=== PATIENT | male | born 2000 | race Caucasian/White ===

== ENCOUNTER 2023-03-04 03:18 | Emergency (ER) | payer OTHER, SELFPAY ==
[2023-03-04] VITALS (7 sets, daily range): BP systolic 117–139; BP diastolic 71–91; PULSE 75–94; RESP 13–20; TEMP 36.3–36.4; O2SAT 96–100
--- NOTE | ~2023-03-04 | XR_ITS ---
Portable chest x-ray Comparison: None Clinical History: Palpitations Findings: Lungs are clear, without focal consolidation or pleural effusion. Cardiomediastinal silho uette is unremarkable. Bones and soft tissues are unremarkable. Impression: Normal chest. Reviewed, dictated and finalized at location . Impression: Normal chest.
--- NOTE | 2023-03-04 04:30 | ECG_ITS ---
Measurements Intervals [place] Rate: 78 P: 51 MT: 130 QRS: 60 QRSD: 98 T: 37 QT: 353 QTc: 404 Interpretive Statements SINUS RHYTHM BASELINE ARTIFACT- I, II, AVR, AVL NORMAL ECG NO PREVIOUS ECG AVAILABLE FOR COMPARISON Electronically Signed On 03-04-2023 6:24:52 CDT by Sekou Santiago D.O.
--- NOTE | 2023-03-04 05:04 | ED.GENADULT ---
HPI - General Adult General Chief complaint: Shortness of Breath/Dyspnea Stated complaint: Hard time breathing, heart rate up History of Present Illness HPI narrative: This is a 22-year-old male with a history of anxiety presenting ED after waking up gasping for breath. He woke up he had a pounding heartbeat, feelings of anxiety and tingling in his hands. It resolved on its own by time the patient got to the emergency room. Patient has no history of panic attacks. He has no other complaints at this time. Related Data Home Medications Medication Instructions Recorded Confirmed No Home Medications 10/29/21 10/29/21 Allergies Allergy/AdvReac Type Severity Reaction Status Date / Time cat dander Allergy Unknown Asthma Verified 10/29/21 15:19 house dust mite Allergy Unknown Asthma Verified 10/29/21 15:19 [facility] Past Medical History Medical History Acute anxiety Nocturnal enuresis Family History Family History Father Anxiety and depression Thyroid disorder Mother Hypertension Social History Social History Smoking status: Never smoker (vaping) Tobacco type: e-cigarettes/vaping Alcohol intake: current Drinks per week: 3 Substance use: never Gender identity (if verbalized by the patient): Male Exam Narrative: APPEARANCE: No apparent distress. Head: atraumatic. EYES: EOMI, NOSE: Atraumatic NECK: Trachea midline RESPIRATORY: No increased rate of breathing, clear to auscultation CARDIOVASCULAR: RRR, no peripheral edema ABDOMINAL: Non-distended, soft nontender no guarding rebound MUSCULOSKELETAl: No obvious deformities NEURO: Alert. Moving 4/4 extremities SKIN:: Warm, dry. Normal color PSYCHIATRIC: Normal affect Course Vital Signs Vital signs: Vital Signs Temperature 97.4 F L 03/04/23 03:22 Pulse Rate 78 03/04/23 03:22 Respiratory Rate 20 03/04/23 03:22 Blood Pressure 135/91 H 03/04/23 03:22 Pulse Oximetry 100 03/04/23 03:22 Oxygen Delivery Room Air 03/04/23 03:22 Temperature 97.6 F 03/04/23 03:32 Pulse Rate 94 03/04/23 04:40 Respiratory Rate 16 03/04/23 04:40 Blood Pressure 120/71 03/04/23 04:40 Pulse Oximetry 96 03/04/23 04:40 Oxygen Delivery Room Air 03/04/23 03:30 Medical Decision Making MDM Narrative Medical decision making narrative: -Presentation: 22-year-old male with history of anxiety presenting with an episode of shortness of breath, anxiety and palpitations. -DDX includes but is not limited to: Anxiety, dysrhythmia, panic disorder, substance use -Co-morbidities complicating care: history of anxiety -Social determinants of health: the patient works for [employer] with his mother -External Chart Review: review of previous office notes for for anxiety -Hx from independent Sources: Mom at bedside -Discussion of Management/Consultants: None -Independent interpretation of studies: Chest XR normal Independent EKG interpretation: Rhythm [sinus], Rate [78], [place] -[normal], GA -[normal], QRS [narrow], QTC [normal], T waves -[negative for concerning inversions], ST Segments - [Negative for concerning elevations] Final interpretations: [Normal Sinus Rhythm] Dx tests considered but not ordered: none -Procedures: none -Interventions: none -Shared decision making / Disposition: I discussed the patient's symptoms with him and his mother. I offered to get some screening lab work and they declined. They are more comfortable following up with her primary care physician. They will be discharged with return precautions. -RX Vital Signs Vital Signs: Vital Signs Temperature 97.4 F L 03/04/23 03:22 Pulse Rate 78 03/04/23 03:22 Respiratory Rate 20 03/04/23 03:22 Blood Pressure 135/91 H 03/04/23 03:22 Pulse Oximetry 100 03/04/23 03:22
== END 2023-03-04 05:28 | disposition home or self-care (01) ==
PROVIDERS: Emergency Provider Emergency Medicine; PCP Family Medicine
DX: F41.0 Panic disorder [episodic paroxysmal anxiety] (principal); F17.290 Nicotine dependence, other tobacco product, uncomplicated
CPT/HCPCS: 71045; 93005; 99283

== ENCOUNTER 2023-04-14 08:32 | Outpatient (CLI) | payer OTHER, SELFPAY ==
[2023-04-14 10:05] LABS: Kit Draw Collected
== END 2023-04-14 08:33 | disposition home or self-care (01) ==
LOC: ANHGOSHLAB 08:34
PROVIDERS: PCP Family Medicine; Visit Provider Nurse Practitioner Family
DX: E03.9 Hypothyroidism, unspecified (principal); F41.9 Anxiety disorder, unspecified
CPT/HCPCS: 36415

== ENCOUNTER 2023-04-22 09:09 | Outpatient (CLI) | payer OTHER, SELFPAY ==
[2023-04-23 07:15] LABS: Kit Draw Collected
== END 2023-04-22 09:10 | disposition home or self-care (01) ==
LOC: ANHGOSHLAB 09:13
PROVIDERS: PCP Family Medicine; Visit Provider Nurse Practitioner Family
DX: E03.9 Hypothyroidism, unspecified (principal); F41.9 Anxiety disorder, unspecified
CPT/HCPCS: 36415

== ENCOUNTER 2024-06-27 08:41 | Outpatient (CLI) | payer OTHER, SELFPAY ==
[2024-06-27 12:46] LABS: Basophils Absolute Auto 0.1 K/mm3 (0.0-0.1); Basophils Percent Auto 1.2 % (0.2-1.2); Eosinophils Absolute Auto 0.2 K/mm3 (0-0.3); Eosinophils Percent Auto 3.2 % (0-4.4); Hematocrit 45.1 % (42.0-52.0); Hemoglobin 14.8 g/dL (14.0-18.0); Immature Granulocyte Absolute 0.02 K/mm3 (0.00-0.031); Immature Granulocyte Percent A 0.3 % (0-0.5); Lymphocytes Absolute Auto 1.95 K/mm3 (0.9-3.2); Lymphocytes Percent Auto 33.3 % (18.3-44.2); Mean Corpuscular HGB Conc 32.8 g/dl (32-36); Mean Corpuscular Hemoglobin 28.1 pg (26-34); Mean Corpuscular Volume 85.7 fl (80-100); Mean Platelet Volume 10.3 fl (7.4-10.4); Monocytes Absolute Auto 0.4 K/mm3 (0.1-0.6); Monocytes Percent Auto 7.5 % (2.6-8.5); Neutrophils Absolute Auto 3.2 K/mm3 (1.3-6.7); Neutrophils Percent Auto 54.5 % (45.5-73.1); Platelet Count Result 292 k/mm3 (150-375); Red Blood Count 5.26 M/mm3 (4.6-6.20); Red Cell Distribution Width 12.4 % (11.5-14.5); White Blood Count 5.9 K/mm3 (4.5-10.0)
[2024-06-27 14:00] LABS: Anion Gap 11 mmol/L (4-12); Blood Urea Nitrogen 11 mg/dL (9-20); Calcium 9.3 mg/dL (8.4-10.2); Carbon Dioxide 28 mmol/L (22-30); Chloride 102 mmol/L (98-107); Cholesterol 148 mg/dL (0-200); Estimated Glomerular Filt Rate > 60; Glucose 102 mg/dL (65-110); HDL Direct 33 mg/dL; Sodium 141 mmol/L (137-145); Triglycerides 87 mg/dL (<150)
[2024-06-27 14:15] LABS: LDL Cholesterol Direct 93 mg/dL
== END 2024-06-27 08:42 | disposition home or self-care (01) ==
LOC: ANHGOSHLAB 08:43
PROVIDERS: PCP Nurse Practitioner Family; Visit Provider Nurse Practitioner Family
DX: E03.9 Hypothyroidism, unspecified (principal); F41.9 Anxiety disorder, unspecified
CPT/HCPCS: 36415; 80048; 80061; 84443; 85025

== ENCOUNTER 2025-06-29 13:30 | Outpatient (CLI) | payer OTHER, SELFPAY ==
[2025-06-29 19:46] LABS: Thyroid Stimulating Hormone 1.710 uIU/mL (0.465-4.680)
== END 2025-06-29 13:31 | disposition home or self-care (01) ==
LOC: ANHGOSHLAB 13:31
PROVIDERS: PCP Nurse Practitioner Family; Visit Provider Nurse Practitioner Family
DX: E03.9 Hypothyroidism, unspecified (principal)
CPT/HCPCS: 36415; 84443